=== PATIENT | male | born 1980 | race Caucasian/White ===

== ENCOUNTER 2017-08-12 21:07 | Emergency (ER) | payer OTHER ==
[2017-08-13] MEDS: LIDOCAINE W/EPINEPHRINE 1% 20ML VIAL SC (03:00)
[2017-08-13] MEDS: TETANUS/DIPHTHERIA TOX ADSORB ADULT 0.5ML SYR/VIAL (90714) IM (03:01)
== END 2017-08-13 03:42 | disposition home or self-care (01) ==
LOC: M ED 21:07
DX: S60.352A Superficial foreign body of left thumb, initial encounter (principal); X58.XXXA Exposure to other specified factors, initial encounter; Y92.9 Unspecified place or not applicable; Y93.9 Activity, unspecified; F17.200 Nicotine dependence, unspecified, uncomplicated; Z79.899 Other long term (current) drug therapy
CPT/HCPCS: 90714

== ENCOUNTER → 2020-04-17 | Outpatient (CLI) | payer SELFPAY ==
[~2020-04-17] MED LIST: DIFL150T PO
== END ==
LOC: M OUTALCOH 09:51
PROVIDERS: ATTEND Psychiatry & Neurology Addiction Medicine
DX: Z03.89 Encounter for observation for other suspected diseases and conditions ruled out (principal)

== ENCOUNTER 2020-04-23 11:12 | Outpatient (RCR) | payer SELFPAY | END 2020-05-04 | LOC: M OUTALCOH 11:12 | PROVIDERS: ATTEND Psychiatry & Neurology Addiction Medicine | DX: Z03.89 Encounter for observation for other suspected diseases and conditions ruled out (principal) ==